=== PATIENT | male | born 1960 | race Caucasian/White ===

== ENCOUNTER 2021-05-22 11:10 | Outpatient (CLI) | payer OTHER, SELFPAY ==
--- NOTE | 2021-05-22 11:23 | XR_ITS ---
WS: [id number] Exam: XR shoulder RT min 2V* [id number] Date/Time of Exam: 05/22/2021 11:37 AM Reason For Exam: R SHOULDER PAIN/ARTHRITIS No fracture or dislocation noted. Normal soft tissues. Minimal degenerative change of the greater tub erosity of the humerus and the glenoid. XR/XR shoulder RT min 2V* [id number] IMPRESSION: 1. Minimal DJD. No fracture or other significant finding.
== END 2021-05-22 11:11 | disposition home or self-care (01) ==
LOC: RAD 11:17
PROVIDERS: PCP Electrodiagnostic Medicine; Visit Provider Electrodiagnostic Medicine
DX: M25.511 Pain in right shoulder (principal); M19.90 Unspecified osteoarthritis, unspecified site; E78.5 Hyperlipidemia, unspecified; I10 Essential (primary) hypertension
CPT/HCPCS: 73030

== ENCOUNTER 2024-10-11 09:32 | Outpatient (CLI) | payer MEDICARE, SELFPAY ==
--- NOTE | 2024-10-11 | ECG_ITS ---
[facility] Test Date: 2024-10-11 Pat Name: Noe Castillo Department: Room: Gender: Male [employer] Faculty Member: : 1960 Requested By: Pavan Stanford Order Number: [id number] Felix MD: Heather Lay M.D. Interpretive Statements Lung unchanged pre/post procedure; Intraprocedure shortess of breath; Symptoms resoled by discharge PROCEDURE: At the baseline, the EKG revealed normal sinus rhythm with normal ST Ts. The baseline heart was 71 bpm with a blood pressue of 142/86 mm of Hg Lexiscan was infused over a period of 20 seconds. A total of 0.4 milligrams of Lexiscan was infused. The stress phase was continued for a total of 5 minutes. Heart rate at the end of the stress phase was 86 bpm with a blood pressure 130/78 mm of Hg. The EKG at the peak infusion revealed no significant changes. Sestamibi was injected 20 seconds after the Lexiscan infusion. Heart rate at the end of the recovery phase was 86 bpm with a blood pressure of 139/76 mm of Hg. CONCLUSION: 1. No significant EKG changes with the LexiScan infusion 2. No LexiScan induced chest pain or cardiac arrhythmia 3. Normal blood pressure and heart rate response 4. Sestamibi/sestamibi perfusion scan pending; see separate report. Electronically Signed On 10-14-2024 16:20:13 CDT by Heather Lay M.D. [email or web address]
[2024-10-11 10:02] VITALS: BMI 34.7
--- NOTE | 2024-10-11 10:02 | NMCV_ITS ---
NM [place] perf SPECT r/s* [id number] Noe Castillo Age: 64 Gender: M : 1960 Exam Date: 10/11/2024 11:01 Ordering Phys: Pavan Max DO Technologist: ISABEL Reynaga Exam [facility]: [facility] Indications: cp STRESS TEST Please see separate stress test report in [facility] for full findings IMAGE PROTOCOL Rest/Stress 1 Lexiscan Day Radiopharmaceutical Dose (mCi) Administration Site Administered by Rest: Tc-99m 10.4 IV ISABEL Vo Sestamibi Stress:Tc-99m 32.2 IV ISABEL Vo Sestamibi Rest: 11-Oct-2024 60 Discovery 630 Stress: 11-Oct-2024 30 Discovery 630 0.4mg Lexiscan. Images obtained in supine and prone position. SPECT RESULTS Technical Quality: Good Raw Data Analysis: Normal Image Corrections: No attenuation or motion correction applied Summed Stress Score: 0 Summed Rest Score: 3 Summed Difference Score: 0 PERFUSION FINDINGS Patchy areas of slightly decreased tracer uptake in the apical region with no significant reversibility FUNCTIONAL RESULTS (calculated via Gated SPECT) Stress Image LV EF (%): 87 Stress EDV (mL):82 TID: 1.28 Stress ESV (mL):11 FUNCTIONAL FINDINGS: Segmental wall motion analysis revealing no gross wall motion abnormalities IMPRESSIONS 1. Myocardial perfusion imaging revealing patchy areas of persistent decreased tracer uptake in the apical region most likely represent examination artifact 2. Normal LV ejection fraction of 87%. 3. LV wall motion analysis revealing no gross wall motion abnormalities. 4. Normal LV volume Low probability for coronary ischemia, based on the above findings Dr Heather Lay MD FACC (Electronically Signed) Final Date: 11 October 2024 23:52 S
[2024-10-11] MEDS: regadenoson 0.4 Mg/5 ml Syringe IVP (11:24)
[2024-10-11 11:39] VITALS: BP 131/78; PULSE 81
== END 2024-10-11 09:33 | disposition home or self-care (01) ==
LOC: CDL 09:38
PROVIDERS: PCP Electrodiagnostic Medicine; Visit Provider Electrodiagnostic Medicine
DX: R07.9 Chest pain, unspecified (principal); R93.1 Abnormal findings on diagnostic imaging of heart and coronary circulation
CPT/HCPCS: 36415; 78452; 93017; 96374; A9500; J2785